=== PATIENT | female | born 1990 | race Caucasian/White ===

== ENCOUNTER 2020-04-12 17:08 | Outpatient (RCR) | payer BC, SELFPAY ==
[2020-04-12 17:57] LABS: Hematocrit 33.6 % (37.0-47.0); Hemoglobin 11.2 g/dL (12.0-15.0)
[2020-04-12 19:09] LABS: HIV 1/2 Ab P24 Ag Result Negative (Negative)
[2020-04-13 09:48] LABS: Rapid Plasma Reagin Non-Reactive (NonReactive)
[2020-04-13] MEDS: RHO(D) IMMUNE GLOBULIN 300 MCG SYRINGE IM (17:12)
== END 2020-07-11 23:59 | disposition home or self-care (01) ==
LOC: ANHLAB 17:08
PROVIDERS: PCP Family Medicine; Visit Provider Obstetrics & Gynecology
DX: Z29.13 Encounter for prophylactic Rho(D) immune globulin (principal); Z11.4 Encounter for screening for human immunodeficiency virus [HIV]; O36.0130 Maternal care for anti-D [Rh] antibodies, third trimester, not applicable or unspecified; Z3A.00 Weeks of gestation of pregnancy not specified
CPT/HCPCS: 36415; 85014; 85018; 85461; 86592; 86703; 90384; 96372; G0432; J2790

== ENCOUNTER 2020-06-28 09:59 | Outpatient (RCR) | payer BC, SELFPAY ==
[2020-06-28 11:05] VITALS: BP 124/74; PULSE 85
== END 2020-07-01 09:34 | disposition home or self-care (01) ==
LOC: ANHOBOP 09:59
PROVIDERS: PCP Family Medicine; Visit Provider Obstetrics & Gynecology
DX: O24.419 Gestational diabetes mellitus in pregnancy, unspecified control (principal); Z3A.39 39 weeks gestation of pregnancy
CPT/HCPCS: 59025

== ENCOUNTER 2020-06-29 06:02 | Inpatient (IN) | payer BC, SELFPAY ==
[2020-06-29] VITALS (159 sets, daily range): BP systolic 87–161; BP diastolic 57–111; PULSE 68–196; RESP 18; TEMP 35.8–36.9; O2SAT 94–100; BMI 35.8
[2020-06-29 07:22] LABS: Basophils Percent Auto 0.3 % (0.2-1.2); Eosinophils Absolute Auto 0.1 K/mm3 (0-0.3); Eosinophils Percent Auto 1.1 % (0-4.4); Hemoglobin 11.6 g/dL (12.0-15.0); Immature Granulocyte Absolute 0.04 K/mm3 (0.00-0.031); Immature Granulocyte Percent A 0.6 % (0-0.5); Lymphocytes Absolute Auto 1.31 K/mm3 (0.9-3.2); Lymphocytes Percent Auto 18.8 % (18.3-44.2); Mean Corpuscular HGB Conc 34.1 g/dl (32-36); Mean Corpuscular Hemoglobin 30.4 pg (26-34); Mean Corpuscular Volume 89.2 fl (80-100); Monocytes Absolute Auto 0.5 K/mm3 (0.1-0.6); Neutrophils Percent Auto 72.2 % (45.5-73.1); Platelet Count Result 157 k/mm3 (150-375); Red Blood Count 3.81 M/mm3 (4.2-5.4); Red Cell Distribution Width 14.1 % (11.5-14.5)
[2020-06-29 07:25] LABS: Glucose Point of Care 97 (65-105)
--- NOTE | 2020-06-29 07:40 | WPDOBADMIT ---
Obstetrics - Admit Note Admission Note: record reviewed. No pertinent additions to the history and/or any subsequent changes in the physical findings that are not consistent with the expected course of the were found. MIL at 39 weeks. SVE /-2 AROM clear odorless fluid, GDM Additions to the history and/or subsequent changes in the physical findings follow. None.
[2020-06-29] MEDS: LACTATED RINGERS 1,000 ML 125 ML IV CONT ×3 (07:42→12:15)
[2020-06-29] MEDS: AMPICILLIN 2 GM/NS 100 ML 2 GM/100 ML BAG IVPB (07:42)
--- NOTE | 2020-06-29 07:42 | P.HP_ITS ---
H&P: HPI History of Present Illness Date/Time: 06/29/20 07:42 Chief complaint: Induction of Labor Narrative: Nicole Friedman is a 30 year old female [facility] Family History Family History (Updated 06/02/20 @ 12:44 by Eduarda Bermudez RN) Mother Type 2 diabetes mellitus Grandparent Type 2 diabetes mellitus Acute myocardial infarction Father Crohn disease Social History Social History Substance use: never Spiritual care concerns: No Meds Home Medications and Allergies Home Medications Medication Instructions Recorded Confirmed Type PNV no.[id number] 2 tablet PO 06/02/20 History [ Gummies] ferrous sulfate 324 mg PO DAILY 06/02/20 06/02/20 History Allergies Allergy/AdvReac Type Severity Reaction Status Date / Time No Known Allergies Allergy Verified 06/02/20 12:39 Vital Signs Vital Signs - 24 hr 06/29/20 06:27 06/29/20 06:30 06/29/20 07:00 Pulse Rate 102 H 101 H 89 Blood Pressure 108/63 113/61 113/68 06/29/20 07:30 Pulse Rate 83 Blood Pressure 110/72 H&P: Results Labs Labs: Short CBC 06/29/20 Range/Units 07:16 WBC 7.0 (4.5-10.0) K/mm3 Hgb 11.6 L (12.0-15.0) g/dL Hct 34.0 L (37.0-47.0) % Plt Count 157 (150-375) k/mm3 Assessment and Plan Assessment and plan (1) Gestational diabetes: Code(s): O24.419 - Gestational diabetes mellitus in , unspecified control Status: Acute
[2020-06-29] MEDS: OXYTOCIN 30 UNITS/NS 500 ML 30 UNITS/500 ML BAG 6 UNITS IV CONT (07:43)
--- NOTE | 2020-06-29 09:34 | WPDANESEPP ---
Anes - Eval Pre Procedure Procedure: labor epidural Date/Time: 06/29/20 09:34 Preop Diagnosis: labor pain Pre Op Diagnosis: Induction of Labor Patient Data Age: 30 Gender: F Height: Weight: Last Vital Signs Temp 36.2 C L 06/29/20 07:47 Pulse 86 06/29/20 08:30 BP 110/60 06/29/20 08:30 Allergies Allergy/AdvReac Type Severity Reaction Status Date / Time No Known Allergies Allergy Verified 06/02/20 12:39 Home Medications Medication Instructions Recorded Confirmed Type PNV no.[id number] 2 tablet PO 06/02/20 History [ Gummies] ferrous sulfate 324 mg PO DAILY 06/02/20 06/02/20 History Laboratory Tests 06/29/20 06/29/20 06/29/20 07:16 07:16 07:16 WBC 7.0 K/mm3 K/mm3 (4.5-10.0) RBC 3.81 M/mm3 L M/mm3 (4.2-5.4) Hgb 11.6 g/dL L g/dL (12.0-15.0) Hct 34.0 % L % (37.0-47.0) MCV 89.2 fl fl (80-100) MCH 30.4 pg pg (26-34) MCHC 34.1 g/dl g/dl (32-36) RDW 14.1 % % (11.5-14.5) Plt Count 157 k/mm3 k/mm3 (150-375) MPV 11.0 fl H fl (7.4-10.4) Immature Gran % (Auto) 0.6 % H % (0-0.5) Neut % (Auto) 72.2 % % (45.5-73.1) Lymph % (Auto) 18.8 % % (18.3-44.2) Drew % (Auto) 7.0 % % (2.6-8.5) Eos % (Auto) 1.1 % % (0-4.4) Baso % (Auto) 0.3 % % (0.2-1.2) Lymph # (Auto) 1.31 K/mm3 K/mm3 (0.9-3.2) Drew # (Auto) 0.5 K/mm3 K/mm3 (0.1-0.6) Eos # (Auto) 0.1 K/mm3 K/mm3 (0-0.3) Baso # (Auto) 0.0 K/mm3 K/mm3 (0.0-0.1) Abs Immat Gran (auto) 0.04 K/mm3 H K/mm3 (0.00-0.031) Absolute Neuts (auto) 5.0 K/mm3 K/mm3 (1.3-6.7) Absolute Nucleated RBC 0.0 K/mm3 K/mm3 (0.0-0.012) Nucleated RBC % 0.0 % % (0.0-0.2) POC Capillary Glucose RPR Pending Blood Type B Negative Antibody Screen Negative 06/29/20 07:23 WBC RBC Hgb Hct MCV MCH MCHC RDW Plt Count MPV Immature Gran % (Auto) Neut % (Auto) Lymph % (Auto) Drew % (Auto) Eos % (Auto) Baso % (Auto) Lymph # (Auto) Drew # (Auto) Eos # (Auto) Baso # (Auto) Abs Immat Gran (auto) Absolute Neuts (auto) Absolute Nucleated RBC Nucleated RBC % POC Capillary Glucose 97 mg/dl mg/dl (65-105) RPR Blood Type Antibody Screen Patient hx anesthesia problems: none Family hx anesthesia problems: none [facility] Family History Family History (Updated 06/02/20 @ 12:44 by Eduarda Bermudez RN) Mother Type 2 diabetes mellitus Grandparent Type 2 diabetes mellitus Acute myocardial infarction Father Crohn disease Social History Social History Years smoked: 7 Smoking status: Former smoker Tobacco type: cigarettes Substance use: never Spiritual care concerns: No Exam Day of Procedure 06/29/20 09:34
[2020-06-29] MEDS: AMPICILLIN 1 GM/NS 50 ML 1 GM/50 ML BAG IVPB ×2 (11:32→16:00)
[2020-06-29 11:50] LABS: Glucose Point of Care 80 (65-105)
[2020-06-29 14:08] LABS: Glucose Point of Care 69 (65-105)
[2020-06-29 15:58] LABS: Glucose Point of Care 63 (65-105)
[2020-06-29 17:18] LABS: Glucose Point of Care 84 (65-105)
--- NOTE | 2020-06-29 19:45 | PM.OBPRVD ---
OB - Delivery Note Procedure Delivery date: 06/29/20 Procedure: Vaginal delivery events: Gestational Diabetes and Labor Induction Intrapartal events: None Induction method: AROM and per pitocin protocol Delivery monitor: external FHT and external uterine Route of delivery: Episiotomy description: None Laceration description: Perineal - 1st Degree Delivery repair: vicryl Specimen: Yes Estimated blood loss (mL): 450 Anesthesia type: Epidural Disposition: other ( ) Baby Date of : 06/29/20 Time of : 19:23 Weeks of gestation at delivery: 39 Infant gender: Male Weight (pounds): 8 Weight (ounces): 10 presentation: vertex position: Right Occiput Anterior Placenta delivery description: Spontaneous cord vessel description: 3 Vessels score one minute: 8 score five minutes: 9 Narrative: Mother and baby [id number], in stable condition. Parents requested delayed cord clamping.
[2020-06-29] MEDS: OXYTOCIN 30 UNITS/NS 500 ML 30 UNITS/500 ML BAG 125 UNITS IV CONT (20:04)
[2020-06-29] MEDS: miSOPROStol 200 MCG TABLET 1000 MCG (20:09)
[2020-06-29] MEDS: WITCH HAZEL 40 PADS 1 PAD TOPICAL (21:41)
[2020-06-29] MEDS: BENZOCAINE 20% AER SPR (*SP) 56 GM CAN 1 SPRAY TOPICAL (21:41)
[2020-06-30 04:23] LABS: Hematocrit 28.9 % (37.0-47.0); Hemoglobin 9.9 g/dL (12.0-15.0)
[2020-06-30 07:00] VITALS: BP 98/58; PULSE 89; RESP 14; TEMP 36.5; O2SAT 96
--- NOTE | 2020-06-30 07:50 | PM.OBPNVD ---
OB - PN: Subj Subjective Date/time seen: 06/30/20 07:50 Patient comments: no complaints, pain well controlled and other (Lochia similar to menses) [place] baby status: doing well OB - PN: Obj Data Labs CBC & Chem 7: 06/30/20 04:16 Labs: Laboratory Results - last 24 hr 06/29/20 06/29/20 06/29/20 07:16 11:29 13:59 Hgb Hct POC Capillary Glucose 80 69 Blood Type B Negative Antibody Screen Negative 06/29/20 06/29/20 06/30/20 15:47 17:15 04:16 Hgb 9.9 L Hct 28.9 L POC Capillary Glucose 63 L 84 Blood Type Antibody Screen OB - PN A/P Plan day: 1 (s/p vaginal delivery, doing well) Plan: routine care Time Spent With Patient Time: Total time spent is greater than 50% in coordination of care (as documented) at patient's floor/unit and/or counseling patient: Exam Const: General: no acute distress GI: Inspection: other (Fundus firm and nontender at umbilicus) GI Palp: Yes Soft to palpation and No Tenderness to palpation present (GI) Extrem: General: no edema
--- NOTE | 2020-06-30 08:13 | WPDANLDPN2 ---
Anes-Prog Note L&D Date/Time: 06/30/20 08:13 Comfortable throughout: labor Neuraxial method: epidural Epidural/Spinal procedure site: clean & non-tender Neuro status: Neuro function grossly intact. Cardiovascular status: normal Respiratory status: normal Airway patency: baseline Mental status: baseline Post-Op hydration status: normal Vital Signs: Last Vital Signs Temp 36.8 C 06/29/20 22:20 Pulse 74 06/29/20 23:03 Resp 18 06/29/20 22:20 BP 107/60 06/29/20 22:20 Pulse Ox 100 06/29/20 22:20 I/O: Intake & Output 06/29/20 06/30/20 06/30/20 23:59 07:59 15:59 Intake Total 500 Output Total 805 Balance -305 Post-procedural complaints: none Patient feedback: Patient satisfied with anesthetic care.
[2020-06-30] MEDS: POLYSACCHARIDE IRON COMPLEX 150 MG CAPSULE PO ×2 (09:04→16:00)
[2020-06-30] MEDS: DOCUSATE SODIUM 100 MG CAPSULE PO ×2 (09:04→16:00)
[2020-06-30] MEDS: IBUPROFEN 600 MG TABLET PO ×3 (09:04→21:59)
[2020-06-30 10:03] LABS: Rapid Plasma Reagin Non-Reactive (NonReactive)
--- NOTE | 2020-06-30 11:20 | PC.NURSE ---
Mother called out for assist with feeding. Mother reports she is using a nipple shield for all feedings, with supplementation and pumping. Discussed nipple shield precautions and possible complications. Instructions given on application and cleaning of shield. Patient able to return demonstration on proper application of shield. Discussed the need for regular pumping if infant continues to nurse with the shield. Patient verbalizes understanding. Reviewed feeding cues, frequencies, duration of feedings, feeding elimination flow sheet, and signs of adequate intake. Demonstrated stimulation techniques to wake infant for feeding. Assisted with infant to breast. Reviewed positioning/alignment in football, holding breast in C hold and guided asymmetrical latch on. Infant was able to latch correctly. Once infant was latched to breast he made no effort to suckle. . Reviewed signs of a correct latch, effective nursing and suck swallow ratio, infant made a few weak sucks followed by long pausing. Discussed may be sleepy from recent circumcision and Tylenol. Feeding plan reviewed of attempting to breast each feeding, if infant does not effectively nursing, mother will supplement 15-20 mls and pump. Mother reports she is pumping without difficulties or discomfort. Reviewed instructions given on breast pump care and usage, pumping schedule, nipple care, and collection and storage of breast milk. Encouraged [id number], breast massage and manual expression to stimulate supply. Assessed patient for correct flange size, placement and draw. Patient verbalizes and demonstrates understanding of instructions.
[2020-06-30] MEDS: WITCH HAZEL 40 PADS 1 PAD TOPICAL (16:00)
[2020-06-30 20:00] VITALS: BP 107/67; PULSE 83; RESP 16; TEMP 36.2; O2SAT 100
--- NOTE | 2020-07-01 07:45 | PM.OBPNVD ---
OB - PN: Subj Subjective Date/time seen: 07/01/20 07:45 Patient comments: no complaints, pain well controlled and tolerating diet OB - PN: Obj Data Labs CBC & Chem 7: 06/30/20 04:16 Labs: Laboratory Results - last 24 hr 06/29/20 07:16 RPR Non-reactive OB - PN A/P Plan day: 2 Plan: routine care and discharge home Time Spent With Patient Time: Total time spent is greater than 50% in coordination of care (as documented) at patient's floor/unit and/or counseling patient: Exam Const: General: comfortable and no acute distress Resp: Effort & Inspection: normal respiratory effort Auscultation: no rales, no rhonchi and no wheezes Cardio: Rate: regular rate Heart sounds: no click, no murmurs and no rubs GI: GI Palp: Yes Soft to palpation and No Tenderness to palpation present (GI) Auscultation: normal bowel sounds Extrem: General: normal to inspection, no pedal edema and no calf tenderness
--- NOTE | 2020-07-01 07:46 | PM.OBDSVD ---
DS: Admitting Diagnosis Admitting Diagnosis Admitting Diagnosis: Induction of Labor DS: Discharge Diagnosis Discharge Diagnosis (1) Gestational diabetes: Code(s): O24.419 - Gestational diabetes mellitus in , unspecified control Status: Acute (2) Term delivered: Code(s): O80 - Encounter for full-term uncomplicated delivery Status: Acute OB - DS: Summary OB Procedures : NST OB Procedures Intrapartum: Spontaneous Vag Delivery OB Procedures: : None Peripartum Data Delivery Method: Natural Vaginal complications: none Status at Discharge Functional status at discharge: independent ambulation Time Spent with Patient Time attestation: Total time spent providing and/or coordinating discharge services: DS: Data Data Completed and Pending Pending studies at discharge: Pending at discharge 06/29/20 20:14 Surgical [PTH] Routine Labs on day of discharge: Labs from last 24 hours 06/29/20 07:16 RPR Non-reactive Discharge Plan Discharge Attending physician on discharge: Camden Ambrocio Discharging Clinician: Camden Ambrocio Patient Disposition: Home, Self-Care Activity: pelvic rest Diet: regular Discharge Instructions: Education: Mom and Baby Guide Given to: Mother Follow-Up: Call your delivering provider's office for an appointment to be seen in: 4 Weeks Mom and baby should come to the [facility] for the follow-up appointment. Appointment Date/Time: July 02, 2020 at 11:00 am What to expect at your follow-up visit: Blood Pressure Check Call [phone] if you are unable to keep your appointment time. BREAST CARE: * Wear a snug supportive bra. * For engorgement discomfort: Breast Feeding: * Apply warm moist washcloths * Express milk as needed to relieve engorgement * Wear loose clothing Bottle Feeding: * May apply ice packs * For sore nipples: * Identify correct latch-on * Apply warm moist washcloths before and after nursing * Air dry nipples after nursing * May apply Lansinoh cream to nipples PERINEAL CARE: * Until bleeding stops, use your jarrod bottle after urinating * Change your pad frequently throughout the day * You may take sitz baths several times a day (fill your bathtub with warm water and soak for 20 minutes.) Do NOT bathe in the water * No tub baths until seen by your physician - You may shower ACTIVITY: * Rest as much as possible. * Do not exercise or lift anything heavier than your baby (such as laundry or other children.) * Avoid stairs or driving as much as possible. * Do not put anything into the vagina. No douching, tampons, or sexual activity until seen by physician. NOTIFY PHYSICIAN IF YOU HAVE ANY QUESTIONS OR IF ANY OF THE FOLLOWING SYMPTOMS OCCUR: * If your perineum becomes red, swollen, or more painful than what you have experienced in the hospital. * If your vaginal bleeding becomes foul smelling. * If your vaginal bleeding becomes more heavy than a period or if your bleeding changes from pink to bright red. However, you may pass an occasional walnut-sized clot once or twice for the first week . * If you experience a sharp, shooting pain in you calves. * If you discover a hard, reddened area on your breast or if you experience flu-like symptoms. * If you have a fever of 100.4 or greater DIET: * Eat regular, well-balanced meals. * Drink plenty of fluids daily. If , drink to thirst. Patient Instructions: Antibiotic Form Stand Alone Forms: General Discharge Information Follow-up/Referrals: Camden Ambrocio MD [Physician] - Discharge Medications: Continued Gummies 400 mcg-35 mg- 25 mg-5 mg Tablet,Chewable 2 tablet PO RF: 0 ferrous sulfate 324 mg (65 mg iron) Tablet,Delayed Release (Dr/Ec) 324 mg
--- NOTE | 2020-07-01 08:00 | PC.NURSE ---
Pt introductions made and plan of care discussed per post , pain management, breast feeding, pumping and supplementing, daily care activities and pending discharge to home. PT verbalized understanding of such care.
[2020-07-01] MEDS: DOCUSATE SODIUM 100 MG CAPSULE PO (08:16)
[2020-07-01] MEDS: POLYSACCHARIDE IRON COMPLEX 150 MG CAPSULE PO (08:16)
[2020-07-01] MEDS: IBUPROFEN 600 MG TABLET PO (08:17)
[2020-07-01 09:00] VITALS: BP 112/64; PULSE 75; RESP 20; TEMP 35.9; O2SAT 100
--- NOTE | 2020-07-01 09:15 | PC.NURSE ---
Patient viewed the discharge video Mother & Baby Care, The First Two Weeks . Patient was given the opportunity and encouraged to ask questions. Patient verbalized understanding of information shared and has been given the mother/baby guide for home reference.
--- NOTE | 2020-07-01 09:15 | PC.NURSE ---
Mother is able to independently latch with appropriate positioning/alignment using nipple shield. She denies any nipple discomfort, is feeding as required and waking to feed if needed. Infant is more awake and eagerly feeding for bursts each feeding. has had several effective feedings in the past 24 hours, and is currently meeting outcomes for weight, output, jaundice and feeding frequencies. Discussed feeding plan to supplement 15-25 mils increasing as infant's needs increase. Discussed her ICP will determine when supplementation may be discontinued by status. Mother may used EBM/formula as supplement. Mother is pumping after each feeding without difficulties. Discussed weaning techniques from shield and when may be ready to initiate weaning. Mother states she feels confident to continue effective /supplementation at home. Reviewed transition to breast milk, signs of adequate intake, and engorgement/relief. Instructed to call ICP if intake/output less than required. Reviewed regular medications mother is taking. Information provided per [facility]. Reviewed community resources on the [facility] website and in the Mom/Baby guide. Information on outpatient services provided. Mother has no further questions at this melissa
--- NOTE | 2020-07-01 12:30 | PC.NURSE ---
PT received discharge instructions per protocol and verbalized understanding of such instructions.
[2020-07-01] MEDS: ACETAMINOPHEN 325 MG TABLET 650 MG PO (12:34)
--- NOTE | 2020-07-01 13:15 | PC.NURSE ---
PT discharged to home ambulatory accompanied by spouse and and taken to waiting car. Follow up appts confirmed
[2020-07-02 11:51] VITALS: BP 116/69; PULSE 96; RESP 20; O2SAT 98
== END 2020-07-01 13:15 | disposition home or self-care (01) | DRG 807 ==
LOC: ANHLDR 06:07 → ANHOB2 22:08
PROVIDERS: Advanced Practice Midwife; Admitting Provider Obstetrics & Gynecology; PCP Family Medicine; Visit Provider Obstetrics & Gynecology
DX: O24.419 Gestational diabetes mellitus in pregnancy, unspecified control (principal); Z37.0 Single live birth; Z3A.39 39 weeks gestation of pregnancy; Z23 Encounter for immunization; O70.0 First degree perineal laceration during delivery; O99.824 Streptococcus B carrier state complicating childbirth
CPT/HCPCS: 36415; 85014; 85018; 85025; 86592; 86850; 86900; 86901; 88307; 90471; 90686; A9270; G0008; J0290; J2590; J2795; J7120

== ENCOUNTER → 2020-12-11 07:03 | Outpatient (CLI) | payer BC, SELFPAY ==
[2020-12-11 22:49] LABS: SARS-CoV-2 RNA PCR Negative
== END ==
PROVIDERS: PCP Family Medicine; Visit Provider Family Medicine
DX: Z20.822 Contact with and (suspected) exposure to COVID-19 (principal); R51.9 Headache, unspecified
CPT/HCPCS: C9803; U0003; U0005

== ENCOUNTER 2021-01-20 08:47 | Emergency (ER) | payer BC, SELFPAY ==
--- NOTE | ~2021-01-20 | CT_ITS ---
EXAMINATION: CT abdomen pelvis w con DATE: 01/20/2021 09:50 INDICATION: Right lower quadrant abdominal pain TECHNIQUE: Computed tomography (CT) of the abdomen and pelvis was performed with 100 cc Omnipaque 350 intravenous contrast. The dose-length product was 497.76 mGy-cm. Automated exposure control and iter ative reconstruction technique were employed. COMPARISON: No prior studies for comparison. FINDINGS: Lung bases are unremarkable. Heart size normal. No significant pleural or pericardial effus ion. No significant vascular abnormality. Small paraesophageal lymph nodes, likely reactive. Fatty infiltration of the liver. There are subtle subcentimeter hypodensities of the spleen, likely b enign. The pancreas, adrenal glands and kidneys are unremarkable. Gallbladder is present. Nonobstruct dada bowel gas pattern. Normal appendix. There is free fluid in the pelvis. There is a 2.5 cm left adn exal cyst, likely ovarian. IMPRESSION: 1. Moderate free fluid in the pelvis, likely physiologic from recently ruptured ovarian cyst. 2.5 cm left ovarian cyst. 2: Hepatic steatosis. Reviewed, dictated and finalized at location B.
--- NOTE | 2021-01-20 09:07 | ED.GENADULT ---
HPI - General Adult General Chief complaint: Abdominal Pain Stated complaint: lower abdominal pain Time Seen by Provider: 01/20/21 09:02 Source: RN notes reviewed History of Present Illness HPI narrative: Patient presents to emergency department from home for abdominal pain. Patient states symptoms began this morning. Pain is located bilateral lower abdomen and radiates into the rectum described as a pressure and is worse with sitting states is associated with nausea this morning. Patient did try taking an enema this morning with minimal relief she denies any fevers or chills diarrhea or any other symptoms Related Data Allergies Allergy/AdvReac Type Severity Reaction Status Date / Time No Known Allergies Allergy Verified 01/20/21 09:11 Review of Systems Review of Systems: Narrative: Gen.: Denies fevers or chills ENT: Denies congestion Respiratory: Denies shortness of breath or cough CV: Denies chest pain or palpitations GI: See HPI denies burning, urgency, frequency or hematuria Musculoskeletal: Denies back pain or muscle pain Neuro: Denies numbness, tingling, weakness or focal weakness Skin: Denies rash Except as documented, all other systems reviewed and negative [facility] Past Medical History Medical History (Updated 01/20/21 @ 10:20 by Edd Livingston DO) Patient denies significant medical history Family History Family History (Updated 06/02/20 @ 12:44 by Eduarda Bermudez RN) Mother Type 2 diabetes mellitus Grandparent Type 2 diabetes mellitus Acute myocardial infarction Father Crohn disease Social History Social History Years smoked: 7 Smoking status: Former smoker Tobacco type: cigarettes Substance use: never Spiritual care concerns: No Exam Narrative: Exam Narrative: APPEARANCE: No acute distress, nontoxic, resting in bed HEENT: Normocephalic, atraumatic, OMM RESPIRATORY: No respiratory distress, clear to auscultation bilaterally with no rhonchi wheezing or rales CARDIOVASCULAR: RRR s murmur ABDOMINAL: Soft, nondistended tender palpation right lower quadrant left lower quadrant no tenderness in right upper quadrant upper quadrant no rebound or guarding Rectal: No fissures small hemorrhoid present that is nonbleeding no signs of erythema or infection MUSCULOSKELETAl: Moves all extremities. No clubbing, cyanosis or edema. NEURO: Awake and alert. Following commands, speech normal, no focal deficits SKIN:: Warm, dry. Normal Color PSYCHIATRIC: Normal affect/mood Course Course Emergency Course: Patient states that they are feeling much better at this time. States abdominal pain has improved. Repeat abdominal exam shows the patient's abdomen to be soft with no surgical abdomen present discussed with patient results of workup and diagnosis. Discussed need for follow-up with primary care physician, reasons to return to the emergency department in proper use of medication. Patient understands and agrees to current treatment plan Vital Signs Vital signs: Vital Signs Temperature 97.1 F L 01/20/21 09:09 Pulse Rate 80 01/20/21 09:09 Respiratory Rate 16 01/20/21 09:09 Blood Pressure 126/85 01/20/21 09:09 Pulse Oximetry 100 01/20/21 09:09 Temperature 97.1 F L 01/20/21 09:09 Pulse Rate 80 01/20/21 09:09 Respiratory Rate 16 01/20/21 09:09 Blood Pressure 126/85 01/20/21 09:09 Pulse Oximetry 100 01/20/21 09:09 Medical Decision Making MDM Narrative Medical decision making narrative: Patient's abdomen is soft without significant pain or signs of surgical abdomen on serial exams. Lab and x-ray evaluations are reviewed and patient is felt to be a reasonable candidate for outpatient management. Patient was instructed as to limitations of x-ray and laboratory evaluation and encouraged to return to ED or primary physician for repeat exam in 12 hours if continued or worsening pain Vital Signs Vital Signs: Vital Signs
[2021-01-20 09:09] VITALS: BP 126/85; PULSE 80; RESP 16; TEMP 36.2; O2SAT 100
[2021-01-20 09:20] LABS: Basophils Percent Auto 0.6 % (0.2-1.2); Eosinophils Absolute Auto 0.1 K/mm3 (0-0.3); Eosinophils Percent Auto 1.5 % (0-4.4); Hematocrit 43.2 % (37.0-47.0); Hemoglobin 14.5 g/dL (12.0-15.0); Immature Granulocyte Absolute 0.03 K/mm3 (0.00-0.031); Immature Granulocyte Percent A 0.5 % (0-0.5); Lymphocytes Percent Auto 18.1 % (18.3-44.2); Mean Corpuscular HGB Conc 33.6 g/dl (32-36); Mean Corpuscular Hemoglobin 30.3 pg (26-34); Mean Corpuscular Volume 90.2 fl (80-100); Mean Platelet Volume 10.3 fl (7.4-10.4); Monocytes Absolute Auto 0.4 K/mm3 (0.1-0.6); Neutrophils Absolute Auto 4.9 K/mm3 (1.3-6.7); Neutrophils Percent Auto 73.3 % (45.5-73.1); Platelet Count Result 231 k/mm3 (150-375); Red Blood Count 4.79 M/mm3 (4.2-5.4); Red Cell Distribution Width 12.2 % (11.5-14.5); White Blood Count 6.6 K/mm3 (4.5-10.0)
[2021-01-20 09:24] LABS: Add Urine Microscopic? YES; Appearance Urine Cloudy (Clear); Bacteria Urine Trace /hpf; Bilirubin Urine Negative (Negative); Blood Urine Negative (Negative); Color Urine Yellow (Yellow); Glucose Urine UA Negative (Negative); Ketones Urine Negative (Negative); Leukocyte Esterase Ur 2+ LEU/UL (Negative); Mucus Urine Rare /lpf; Nitrate Urine Negative (Negative); Protein Urine 1+ mg/dL (Negative); Squamous Epithelial Cell Urine Many /hpf (Few); Urobilinogen Urine Negative mg/dL (<2.0)
[2021-01-20 09:35] LABS: Alanine Aminotransferase 19 U/L (4-35); Albumin Level 4.6 g/dL (3.5-5.1); Alkaline Phosphatase 97 U/L (38-126); Anion Gap 9 mmol/L (8-16); Aspartate Amino Transferase 24 U/L (14-36); Bilirubin,Total 0.5 mg/dL (0.2-1.3); Blood Urea Nitrogen 11 mg/dL (7-17); Calcium 8.9 mg/dL (8.4-10.2); Carbon Dioxide 26 mmol/L (22-30); Chloride 106 mmol/L (98-107); Estimated CRCL calculation 92 ml/min; Estimated Glomerular Filt Rate > 60; Glucose 111 mg/dL (65-105); Lipase 61 U/L (23-300); Potassium 3.9 mmol/L (3.4-5.0); Sodium 141 mmol/L (137-145)
--- NOTE | 2021-01-20 09:45 | PC.NURSE ---
Pt in CT.
[2021-01-20] MEDS: NITROFURANTOIN MONOHYD MACROCR 100 MG CAP PO (10:29)
[2021-01-20 10:30] VITALS: BP 116/73; PULSE 84; RESP 16; O2SAT 99
== END 2021-01-20 10:38 | disposition home or self-care (01) ==
PROVIDERS: Emergency Provider Emergency Medicine; PCP Family Medicine
DX: N83.202 Unspecified ovarian cyst, left side (principal); Z87.891 Personal history of nicotine dependence; K76.0 Fatty (change of) liver, not elsewhere classified
CPT/HCPCS: 36415; 74177; 80053; 81001; 81025; 83690; 85025; 87086; 99284; A9270; Q9967

== ENCOUNTER → 2021-10-19 01:58 | Outpatient (CLI) | payer BC, SELFPAY ==
[2021-10-20 02:22] LABS: SARS-CoV-2 RNA PCR Negative
== END ==
PROVIDERS: PCP Family Medicine; Visit Provider Physician Assistant
DX: Z20.822 Contact with and (suspected) exposure to COVID-19 (principal)
CPT/HCPCS: C9803; U0003; U0005

== ENCOUNTER → 2021-11-15 10:36 | Outpatient (CLI) | payer BC, SELFPAY ==
[2021-11-15 19:08] LABS: SARS-CoV-2 RNA PCR Positive
== END ==
PROVIDERS: PCP Family Medicine; Visit Provider Physician Assistant
DX: U07.1 COVID-19 (principal)
CPT/HCPCS: C9803; U0003; U0005

== ENCOUNTER 2022-11-20 11:09 | Emergency (ER) | payer BC, SELFPAY ==
[2022-11-20 11:27] VITALS: BP 117/70; PULSE 107; RESP 18; TEMP 36.2; O2SAT 100
--- NOTE | 2022-11-20 11:36 | ED.URI ---
HPI - URI/Sore Throat General Chief Complaint: Upper Respiratory Infection Stated Complaint: congestion,cough,sorethroat Time Seen by Provider: 11/20/22 11:10 Source: patient Mode of arrival: ambulatory Limitations: no limitations History of Present Illness HPI Narrative: 32-year-old female presents [facility] complains of nasal congestion, dry cough, sore throat, sinus pressure and right ear pressure for the past 10 days. Patient has been taking [id number]-[id number] Tylenol with minimal relief. Patient is currently 21 weeks . Patient denies abdominal pain, abdominal cramping, vaginal discharge or vaginal bleeding. Patient reports that she saw her OBGYN on Sunday and they suggested that she try xhld-xwn-[id number] medications which she has been taking with no relief. Patient denies fever, body aches, chills, nausea, vomiting or diarrhea. MD elicited complaint: rhinorrhea, nasal congestion and sinus pain Onset (ago): day(s) (10) Able to tolerate fluids by mouth: Yes Treatments prior to arrival: acetaminophen Related Data Allergies Allergy/AdvReac Type Severity Reaction Status Date / Time No Known Allergies Allergy Verified 01/20/21 09:11 Review of Systems Constitutional: Constitutional: Denies chills, Denies fatigue, Denies fever(s) and Denies weakness ENT: Denies vertigo, Denies dizziness, Reports nasal congestion and Reports sore throat Comments: Right ear pressure, sinus pressure Cardiovascular: Cardiovascular: Denies chest pain Respiratory: Respiratory: Reports cough, Denies dyspnea and Denies wheezing Gastrointestinal: Gastrointestinal: Denies diarrhea, Denies nausea and Denies vomiting Musculoskeletal: Musculoskeletal: Denies arthralgias Integumentary/Breasts: Skin/Breast: Denies rash PMFSH Past Medical History Medical History Patient denies significant medical history Family History Family History Mother Type 2 diabetes mellitus Grandparent Type 2 diabetes mellitus Acute myocardial infarction Father Crohn disease Social History Social History Years smoked: 7 Smoking status: Former smoker Tobacco type: cigarettes Substance use: never Spiritual care concerns: No Comments At time of signature, I agree with nursing past medical, surgical, social and family history. There is no relevant family history pertinent to the presenting complaint. Exam Const: General: healthy appearing and no acute distress Nutritional Appearance: well nourished Orientation/consciousness: patient oriented x3 Limitations: no limitations and No altered mental status HENMT: Head: normal to inspection Ears: external ears normal and TM abnormal wth effusion serous on the right Face and sinus: sinus tenderness frontal Mouth: Yes moist mucous membranes Teeth and gingiva: dentition normal Throat: posterior oropharynx normal Other: Moderate nasal congestion noted, right is worse than left Eyes: Conjunctivae: conjunctivae normal Neck: Neck: normal visual inspection Resp: Effort & Inspection: normal respiratory effort, not labored and not tachypneic Auscultation: clear to auscultation bilaterally, no crackles, no rales and no rhonchi Cardio: Rate: regular rate Rhythm: regular rhythm Heart sounds: no murmurs Skin: General skin exam: normal color Rashes: no rashes Neuro: General: patient oriented x3 Speech: normal speech Psych: Affect: normal affect Attitude: cooperative Course Course Level of Care: [facility] Visit Vital Signs Vital signs: Vital Signs Temperature 36.2 C L 11/20/22 11:27 Pulse Rate 107 H 11/20/22 11:27 Respiratory Rate 18 11/20/22 11:27 Blood Pressure 117/70 11/20/22 11:27 Pulse Oximetry 100 11/20/22 11:27 Oxygen Delivery Room Air 11/20/22 11:27 Temperature 36.2 C L 11/20/22 11
== END 2022-11-20 11:58 | disposition home or self-care (01) ==
PROVIDERS: Emergency Provider Nurse Practitioner Family; PCP Family Medicine
DX: J32.9 Chronic sinusitis, unspecified (principal); Z87.891 Personal history of nicotine dependence
CPT/HCPCS: 99213; G0463

== ENCOUNTER 2023-01-12 10:50 | Outpatient (RCR) | payer BC, SELFPAY ==
[2023-01-12] MEDS: RHO(D) IMMUNE GLOBULIN 300 MCG/2 ML SYRINGE IM (11:07)
== END 2023-04-11 23:59 | disposition home or self-care (01) ==
LOC: ANHLAB 10:50
PROVIDERS: PCP Family Medicine; Visit Provider Advanced Practice Midwife
DX: Z29.13 Encounter for prophylactic Rho(D) immune globulin (principal); O36.0130 Maternal care for anti-D [Rh] antibodies, third trimester, not applicable or unspecified; Z3A.00 Weeks of gestation of pregnancy not specified
CPT/HCPCS: 36415; 85461; 86850; 86900; 86901; 90384; 96372; J2790

== ENCOUNTER 2023-03-23 09:28 | Outpatient (CLI) | payer BC, SELFPAY ==
--- NOTE | ~2023-03-23 | US_ITS ---
EXAMINATION: US OB BPP wo non-stress DATE: 03/23/2023 09:59 INDICATION: Gestational diabetes, third trimester TECHNIQUE: Real-time pelvic ultrasound was performed. The interpreting radiologist was not present fo r the study. COMPARISON: None. FINDINGS: There is a single living fetus in vertex presentation. The placenta is fundal. heart rate is 14 2 beats per minute (bpm). Biophysical profile performed by the technologist: breathing (30 sec sustained breathing in 30 minutes): 2 out of 2 movement (3 gross body movements in 30 minutes): 2 out of 2 tone (one episode of appoosq-ggtmlywrk-cipufvq limb movement): 2 out of 2 Amniotic fluid pocket (2 cm): 2 out of 2 Total score: 8 out of 8 IMPRESSION: 1. Single living fetus in vertex presentation. 2. Biophysical profile 8 out of 8. Reviewed, dictated and finalized at location B.
[2023-03-23 10:01] VITALS: BP 103/63; PULSE 111
== END 2023-03-23 10:39 | disposition home or self-care (01) ==
LOC: ANHOBOP 09:32
PROVIDERS: PCP Family Medicine; Visit Provider Obstetrics & Gynecology
DX: O42.90 Premature rupture of membranes, unspecified as to length of time between rupture and onset of labor, unspecified weeks of gestation (principal); Z3A.00 Weeks of gestation of pregnancy not specified
CPT/HCPCS: 59025; 76819; 84112